=== PATIENT | female | born 1970 | race Caucasian/White ===

== ENCOUNTER 2021-04-28 16:55 | Emergency (ER) | payer SELFPAY ==
[~2021-04-28] VITALS: Ht 160 cm; Wt 87.3 kg
[2021-04-28 16:55] VITALS: BP 131/76
== END 2021-04-28 21:47 | disposition left against medical advice (07) ==
LOC: M ED 16:55
DX: Z53.29 Procedure and treatment not carried out because of patient's decision for other reasons (principal)